=== PATIENT | female | born 1950 | race Caucasian/White ===

== ENCOUNTER → 2018-05-24 | Outpatient (CLI) | payer MEDICARE | END | disposition home or self-care (01) | LOC: CFH 10:00 | PROVIDERS: ATTEND Nurse Practitioner Family | DX: Z12.31 Encounter for screening mammogram for malignant neoplasm of breast (principal); M81.0 Age-related osteoporosis without current pathological fracture; R06.00 Dyspnea, unspecified; N95.9 Unspecified menopausal and perimenopausal disorder | CPT/HCPCS: 71250; 77080; 77067 ==